=== PATIENT | male | born 1945 | race Caucasian/White ===

== ENCOUNTER 2017-02-27 04:50 | Inpatient (IN) | payer OTHER ==
[2017-02-11 09:14] VITALS: BMI 27.0
--- NOTE | 2017-02-11 09:57 | PAT Medication Instructions ---
Service Date Feb 11, 2017. Current Home Medication List Acetaminophen (Tylenol Arthritis Ext Rel), 650 MG PO Q8H PRN for Pain Ibuprofen (Motrin), 400 MG PO DAILY PRN for Pain Metoprolol Tartrate (Lopressor) (Lopressor), 50 MG PO BID Simvastatin (Zocor), 20 MG PO QAM Triamterene & Hydrochlorothiaz (Hctz/Triamterene), 37.5 MG PO QAM Medication Instructions For Your Scheduled Surgery - Check with surgeon for instructions: Ibuprofen (Motrin), 400 MG PO DAILY PRN for Pain - Hold the following medications the morning of surgery: Triamterene & Hydrochlorothiaz (Hctz/Triamterene), 37.5 MG PO QAM - Take the following medications the morning of surgery with a sip of water: Metoprolol Tartrate (Lopressor) (Lopressor), 50 MG PO BID Simvastatin (Zocor), 20 MG PO QAM Acetaminophen (Tylenol Arthritis Ext Rel), 650 MG PO Q8H PRN for Pain (if needed ) - Take the following medications as scheduled the night before surgery: Metoprolol Tartrate (Lopressor) (Lopressor), 50 MG PO BID Acetaminophen (Tylenol Arthritis Ext Rel), 650 MG PO Q8H PRN for Pain (if needed ) If you have any questions please call us at [phone] or [phone] or [phone]
[2017-02-11 10:27] LABS: BASO % 0.1 %; BASO ABS # 0.01 K/uL (0-0.2); COMPLETE YES; EOS % 2.1 %; HEMATOCRIT 47.1 % (42-52); IG% 0.1 %; LYMPH % 25.3 %; LYMPH ABS # 1.82 K/uL (1.2-3.4); MEAN CELL VOLUME 90.4 fL (80-100); MEAN CORPUSCULAR HEMOGLOBIN 31.5 pg (25-34); MEAN CORPUSCULAR HGB CONC 34.8 g/dl (32-36); MEAN PLATELET VOLUME 8.5 fL (7.4-10.4); MONO % 7.5 %; NEUT % 64.9 %; PLATELET COUNT 194 K/uL (130-400); RED BLOOD COUNT 5.21 M/uL (4.7-6.1)
--- NOTE | 2017-02-11 10:31 | DIAGNOSTIC IMAGING REPORT ---
TWO VIEW CHEST CLINICAL HISTORY: Preoperative examination. FINDINGS: PA and lateral chest radiographs are compared to study dated 03/09/2017. The cardiomediastinal silhouette is unremarkable. The lungs and pleural spaces are clear. There is no pneumothorax. The skeletal structures are osteopenic. The bony thorax appears intact. IMPRESSION: No active disease in the chest. Electronically signed by: Kota Santo M.D. 02/11/2017 10:29 AM Dictated Date/Time: 02/11/2017 10:29 AM
[2017-02-11 10:40] LABS: PARTIAL THROMBOPLASTIN RATIO 1.2; PROTHROMBIN TIME (PATIENT) 10.8 SECONDS (9.0-12.0)
[2017-02-11 12:02] LABS: BLOOD UREA NITROGEN 21 mg/dl (7-18); BUN/CREATININE RATIO 16.1 (10-20); C-REACTIVE PROTEIN < 0.29 mg/dl (0-0.29); CARBON DIOXIDE 34 mmol/L (21-32); CHLORIDE 99 mmol/L (98-107); GLUCOSE 96 mg/dl (70-99); POTASSIUM 4.2 mmol/L (3.5-5.1); SODIUM 138 mmol/L (136-145)
--- NOTE | 2017-02-20 23:08 | HISTORY & PHYSICAL EXAMINATION ---
DATE OF ADMISSION: 02/27/2017 CHIEF COMPLAINT: Left hip pain and decreased ability to ambulate. HISTORY OF PRESENT ILLNESS: A 71-year-old gentleman who presents for surgical treatment of his left hip. He has got fairly complex history related to his hips. He underwent right hip replacement done by Dr. Humphries in the past and then had a work-related injury when he was working at [employer] 2-1/2 years ago. He has been through extensive evaluation including his spine with some residual sciatic nerve problems. He reports weakness in his right leg and had an AFO placed. He has had multiple falls over the past year to year and a half and developed increased pain and discomfort in his left hip. We were evaluating him in the past for his right hip problem and it was noted that he had increased uptake on bone scan of his left hip. MRI showed mostly degenerative changes. There was some concern about a fracture. We treated him conservatively and he has done okay but developed increased pain and discomfort, particularly in the past year in his left hip. X-rays show progressive hip arthritis. He is got to use a cane to get around. He is really limited by his hip pain. He would like to have his hip fixed if possible. It is mostly thigh pain. His walking tolerance is limited. PAST MEDICAL HISTORY: 1. Hypertension. 2. Elevated cholesterol. 3. Right leg numbness and sciatica. 4. Arthritis. 5. 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 PREVIOUS SURGERIES: Include: 1. Tonsillectomy. 2. Hernia repair. 3. Right total hip replacement done by Dr. Humphries. ALLERGIES: None. CURRENT MEDICINES: 1. Metoprolol 50 mg twice a day. 2. Hydrochlorothiazide/triamterene 75 mg a day. 3. Simvastatin 20 mg a day. SOCIAL HISTORY: A 71-year-old male, he is . He does not smoke. FAMILY HISTORY: Noncontributory. REVIEW OF SYSTEMS: Negative for diabetes, neurologic problems, vascular problems, bleeding disorders. He does have history of sciatica affecting his right leg. PHYSICAL EXAMINATION: GENERAL: Healthy, pleasant middle-aged male. He looks to be in pretty good health. HEENT: Benign. NECK: Supple. No lymphadenopathy. LUNGS: Clear to auscultation. HEART: Regular rate and rhythm. ABDOMEN: Soft, nontender, nondistended. EXTREMITIES: Grossly neurovascularly intact except as follows: Examination of the left hip reveals the patient walks with a markedly antalgic gait. He limps on the left side. Leg lengths clinically appear pretty equal. He has stiffness with hip motion with internal rotation and neutral at best and external rotation to 20 degrees. Negative straight leg raise. X-RAYS: X-rays of the left hip were reviewed. They show advanced left hip DJD. He has got complete loss of his superior joint space. Moderate size medial osteophyte. This has progressed significantly over the past year. ASSESSMENT: A 71-year-old male status post right hip replacement with advanced left hip degenerative joint disease. It has gotten significantly worse over the past year. The patient has become debilitated by his pain. He would like to have his left hip replaced. PLAN: We are going to take him to the operating room and do left total hip replacement. The risks and benefits of this procedure were explained to the patient, include but not limited to DVT, PE, , infection, neurological injury, vascular injury, bleeding problem, pain, limited range of motion, stiffness, failure to relieve symptoms, incomplete relief of symptoms, need for further surgery in the future, leg length inequality, nerve palsy, etc. The patient understands and desires to proceed. Informed consent was obtained. He is fully aware this is not going to fix all of his back and hip and leg problems. As far as discharge plans, he is planning to be discharged to home and use [facility]. We did talk to him about taking his metoprolol the morning of surgery.
[~2017-02-27] VITALS: Ht 182.9 cm; Wt 89.9 kg
[2017-02-27] VITALS (21 sets, daily range): BP systolic 93–149; BP diastolic 52–84; PULSE 56–72; TEMP 36.5–36.9; O2SAT 16–99; Ht 182.9 cm; Wt 89.9 kg
[~2017-02-27 04:50] MED LIST: ACET1TAB84 PO; IBUP-1459 PO; METO50TA16 PO; SIMV40TA2 PO; TRIA75TA PO
[2017-02-27] MEDS ORDERED: CEFAZOLIN IV 2,000 MG/60 ML D5W IV ONE (05:51)
[2017-02-27] MEDS ORDERED: LACTATED RINGER'S 1000ML IV SCH (06:00)
[2017-02-27] MEDS ORDERED: METOCLOPRAMIDE HCL 10 MG TAB PO SCH (06:00)
[2017-02-27] MEDS ORDERED: TRANEXAMIC ACID INJ 1,000 MG in SODIUM CHLORIDE 0.9% 100ML 100 ML IV SCH ×2 (06:00→14:30)
[2017-02-27] MEDS ORDERED: SCOPOLAMINE 1.5 MG TDSY TD SCH (06:00)
[2017-02-27] MEDS ORDERED: ACETAMINOPHEN 500 MG TAB PO SCH (06:00)
[2017-02-27] MEDS ORDERED: GABAPENTIN 300 MG CAP PO SCH (06:00)
[2017-02-27] MEDS ORDERED: FAMOTIDINE 20 MG TAB PO SCH (06:00)
[2017-02-27] MEDS ORDERED: LACTATED RINGER'S 500 ML IV SCH (06:00)
[2017-02-27] MEDS ORDERED: BUPIVACAINE 0.5 % 5 MG/1 ML PF 10ML VIAL ONE (06:26)
[2017-02-27] MEDS ORDERED: BACITRACIN 50000 UNIT VIAL ONE (06:27)
[2017-02-27] MEDS ORDERED: BUPIVACAINE/EPINEPHRINE 0.5% MPF 1:200,000 30 ML VIAL ONE (06:27)
[2017-02-27] MEDS ORDERED: MIDAZOLAM HCL 1 MG/ML 2ML VIAL ONE ×2 (06:35)
[2017-02-27] MEDS ORDERED: MORPHINE SULFATE PF 2MG/2ML SYR ONE (06:36)
[2017-02-27] MEDS ORDERED: FENTANYL CITRATE INJ 50 MCG/1 ML 2 ML VIAL ONE (06:36)
[2017-02-27] MEDS ORDERED: LIDOCAINE HCL 2% 2 ML VIAL (20MG/ML) ONE (06:37)
[2017-02-27] MEDS ORDERED: PROPOFOL IV EMULSION 10 MG/ML 20 ML VIAL IV ONE (06:38)
--- NOTE | 2017-02-27 06:52 | History & Physical Bridge Note ---
H&P Re-Evaluation Bridge Note: I have examined the patient, reviewed the History & Physical and in the interval since the performance of the History & Physical I have noted the following changes of clinical significance: No changes noted
[2017-02-27] MEDS ORDERED: EpHEDrine SULFATE INJ 50 MG/ML AMP ONE (07:11)
[2017-02-27] MEDS ORDERED: SODIUM CHLORIDE 0.9% INJ 10 ML VIAL ONE (07:11)
[2017-02-27] MEDS ORDERED: ONDANSETRON INJ 2 MG/ML 2 ML VIAL ONE (07:11)
[2017-02-27] MEDS ORDERED: LACTATED RINGER'S 1000ML 500 ML IV PRN (07:22)
[2017-02-27] MEDS ORDERED: NALOXONE HCL INJ 0.08 MG in SYRINGE 1.8 ML IV PRN (07:22)
[2017-02-27] MEDS ORDERED: NALOXONE HCL INJ 1 MG in SODIUM CHLORIDE 0.9% 1000ML 1,000 ML IV PRN ×4 (07:22)
[2017-02-27] MEDS ORDERED: SODIUM CHLORIDE 0.9% 1000ML 1,000 ML IV PRN (07:22)
[2017-02-27] MEDS ORDERED: MEPERIDINE HCL 25 MG/ML CARP IV PRN ×2 (07:30)
[2017-02-27] MEDS ORDERED: ONDANSETRON INJ 2 MG/ML 2 ML VIAL IV PRN ×3 (07:30→08:30)
[2017-02-27] MEDS ORDERED: KETOROLAC TROMETHAMINE 30 MG/ML VIAL IV. PRN (07:30)
[2017-02-27] MEDS ORDERED: NO NARCOTICS OR SEDATIVES SCH (07:30)
[2017-02-27] MEDS ORDERED: EpHEDrine SULFATE INJ 50 MG/ML AMP IV PRN ×2 (07:30)
[2017-02-27] MEDS ORDERED: PHENYLEPHRINE 100MCG/ML 5ML SYR IV PRN (07:30)
[2017-02-27] MEDS ORDERED: PROMETHAZINE HCL INJ 6.25 MG in SODIUM CHLORIDE 0.9% 50ML 50 ML IV PRN (07:30)
[2017-02-27] MEDS ORDERED: DiphenhydrAMINE HCL 50 MG/ML VIAL IV PRN (07:30)
[2017-02-27] MEDS ORDERED: KETOROLAC TROMETHAMINE 15 MG/ML VIAL IV. PRN (07:30)
[2017-02-27] MEDS ORDERED: ATROPINE SULFATE 0.1 MG/ML 5ML SYR IV PRN (07:30)
[2017-02-27] MEDS ORDERED: NALOXONE HCL 0.4 MG/1 ML VIAL/CARP IV PRN (07:30)
[2017-02-27] MEDS ORDERED: MoRPHine SULFATE PF 1 MG/ML 10 ML AMP/VIAL EPI PRN (07:30)
[2017-02-27] MEDS ORDERED: PHENYLEPHRINE HCL INJ 10 MG/ML VIAL ONE (07:44)
[2017-02-27] MEDS ORDERED: TAMSULOSIN HCL 0.4 MG CAP PO PRN (08:30)
[2017-02-27] MEDS ORDERED: ZOLPIDEM TARTRATE 5 MG TAB PO PRN (08:30)
[2017-02-27] MEDS ORDERED: BISACODYL 10 MG SUPP PR PRN (08:30)
[2017-02-27] MEDS ORDERED: ALUMINUM/MAGNESIUM/SIMETH (MAALOX MAX) 30 ML UDC PO PRN (08:30)
[2017-02-27] MEDS ORDERED: SILVER SULFADIAZINE 1% CR 50 GM JAR EXT PRN (08:30)
[2017-02-27] MEDS ORDERED: MAGNESIUM HYDROXIDE SUSP 30 ML UDC PO PRN (08:30)
--- NOTE | 2017-02-27 08:30 | [facility] Post Operative Brief Note ---
Immediate Operative Summary Operative Date Feb 27, 2017. Pre-Operative Diagnosis Left Hip Degenerative Joint Disease Post-Operative Diagnosis Same as preop Procedure(s) Performed Left Total Hip Arthroplasty Uncemented Surgeon Dr. Marcos Hadoop Admin Surgeon(s) Deondre Higginbotham PA-C Estimated Blood Loss 300 ml Findings Left Hip DJD Fluids (cc crystalloids) 800 cc Specimens A. Left Femoral Head Drains None Anesthesia Spinal Complication(s) None Disposition Recovery Room / PACU
[2017-02-27] MEDS ORDERED: SIMVASTATIN 20 MG TAB PO SCH (09:00)
--- NOTE | 2017-02-27 09:04 | DIAGNOSTIC IMAGING REPORT ---
L PELVIS/UNILATERAL HIP 1 VIEW HISTORY: 71 years-old Male IN PACU - A/P PELVIS and LATERAL HIP INCLUDING ALL OF IMPLANT status post left hip arthroplasty. Degenerative joint disease of the left hip COMPARISON: Pelvis radiograph 04/08/2007 TECHNIQUE: AP view the pelvis with crosstable lateral view of the left hip FINDINGS: The bones are mildly demineralized. Right total hip arthroplasty noted in satisfactory alignment. There has been interval left total hip arthroplasty which also appears to be in satisfactory alignment. No periprosthetic fracture or retained foreign body identified. Expected postoperative soft tissue swelling and deep tissue air is noted about the left hip with lateral skin cassie. Multiple surgical clips project over the pelvis. IMPRESSION: Status post placement of a left total hip arthroplasty without complication identified. The above report was generated using voice recognition software. It may contain grammatical, syntax or spelling errors. Electronically signed by: Edvin Rivera M.D. 02/27/2017 9:02 AM Dictated Date/Time: 02/27/2017 9:00 AM
--- NOTE | 2017-02-27 09:05 | Anesthesiology Progress Note ---
Anesthesia Post Op Note Date & Time Feb 27, 2017 at 09:05 Vital Signs Pain Intensity: 0 Vital Signs Past 12 Hours Date Time Temp Pulse Resp B/P (MAP) Pulse Ox O2 Delivery O2 Flow Rate FiO2 02/27/17 08:55 86 16 119/70 97 Nasal Cannula 2 02/27/17 08:45 72 16 109/63 98 Oxymask 10 02/27/17 08:35 72 16 122/72 98 Oxymask 10 02/27/17 08:29 36.6 79 16 128/66 97 Oxymask 10 02/27/17 05:37 36.5 56 18 149/84 96 Room Air Notes Mental Status: alert / awake / arousable, participated in evaluation Pt Amnestic to Procedure: Yes Nausea / Vomiting: adequately controlled Pain: adequately controlled Airway Patency, RR, SpO2: stable & adequate BP & HR: stable & adequate Hydration State: stable & adequate Neuraxial Anesthesia: was administered, sensory block is resolving Anesthetic Complications: no major complications apparent
--- NOTE | 2017-02-27 09:13 | OPERATIVE REPORT ---
DATE OF OPERATION: 02/27/2017 SURGEON: Chino Marcos MD. GAUGE INSPECTOR: LIBORIO Corcoran. PREOPERATIVE DIAGNOSIS: Left hip degenerative joint disease. POSTOPERATIVE DIAGNOSIS: Same. PROCEDURE PERFORMED: Left uncemented total hip arthroplasty. COMPLICATION: None. ESTIMATED BLOOD LOSS: 300 mL FLUID REPLACEMENT: 800 mL crystalloid fluid replacement. ANESTHESIA: Spinal. DRAINS: None. SPECIMENS: Left femoral head sent for pathology. OPERATIVE INDICATIONS: The patient is a 71-year-old gentleman who has had a fairly long history of some hip problems in the past. He had his right hip replaced back in 2006, he has done well from that. He did have some trauma a couple years ago, which seemed to exacerbate everything. He did have a bit of sciatic nerve palsy on his right side. Over the past year, he has developed increased pain and discomfort in his left hip to the point where he has had to use a cane to get around. X-rays showed progressive left hip arthritis. He elected to proceed with operative treatment. OPERATIVE FINDINGS: Operative findings revealed advanced left hip DJD. He had grade 4 [id number] disease of the femoral head and acetabulum. He had pretty significant anterior osteophytes of the acetabulum. He had a pretty large hip joint effusion as well. OPERATIVE IMPLANTS: Operative implants consisted of: 1. Biomet G7 size 54 mm acetabular shell. 2. An apex hole eliminator. 3. 6.5 cancellous acetabular screws, 1 at 35 mm length and 1 at 25 mm in length. 4. Highly cross-linked polyethylene liner with a 54 mm outer diameter and 36 mm inner diameter. 5. DePuy size 13.5 small stature femoral stem. 6. A +8.5/36 mm metal articular ball. OPERATIVE PROCEDURE: The patient was taken to the operating room, identified and placed on the operating table in supine position. All contact areas were appropriately padded. IV antibiotics provided by anesthesia team. A spinal anesthetic had been implemented in the holding area. Stuart catheter was placed in sterile fashion. The patient was then placed in the right lateral decubitus position. Stulberg hip positioner was used for positioning. The left hip and leg were then prepped and draped in usual sterile fashion. A posterolateral approach to the left hip was then performed through a curvilinear incision centered over the greater trochanter. Blunt and sharp dissection was carried out through the subcutaneous tissue down to the level of the IT band and gluteal fascia. The IT band and gluteal fascia were incised longitudinally in line with skin incision. The underlying greater trochanteric bursa was excised. The piriformis and external rotators were tagged and taken off the posterior aspect of the hip joint capsule. Great care was taken throughout the procedure to protect the sciatic nerve at all times. Posterior capsulotomy was then performed, leaving a large flap for later repair. Hip was internally rotated and dislocated. Femoral neck osteotomy cut was made with the final cut 15 mm above the lesser trochanter. Femoral head was removed and sent for pathology. The femur was retracted anteriorly. Attention was then drawn to the acetabulum. The acetabular labrum was excised. The pulvinar fat was excised. Some anterior osteophytes were removed. Sequential reaming of the acetabulum was then performed, beginning with a size 45 and progressing up to 53. A 54 mm Biomet G7 acetabular shell was then placed in about 40 degrees of lateral opening and 20 degrees of anteversion. It was fixed with two 6.5 cancellous acetabular screws. A trial liner was placed. The anterior osteophyte was removed. Attention was then drawn to the femur. The proximal femur was entered with a cookie cutter, followed by a canal finder and lateralizing reamer. Sequential reaming of the femur was then performed, beginning with a size 9 reamer and progressing up to a 13. We got pretty good chatter at 13. I then broached beginning with a size 10.5 and progressing up to 13.5 small broach. His cancellous bone was extremely hard, and therefore, we did not attempt to place a larger implant. I then used the calcar reamer to smoothen off the calcar. We trialed the hip. The +5/36 mm articular ball provided stability but soft tissue tension was still pretty laxed. With the +8.5 ball, I tightened up the soft tissues. The hip was fully stable in full extension and external rotation and flexion to 90 degrees, internal rotation to 50+ degrees. Leg lengths seemed appropriate in length and equal. Attention was then turned toward placing these components. All trial components were removed. An apex hole eliminator was placed. Highly cross-linked polyethylene liner was placed. A 13.5 small stature AML femoral stem was placed. We got excellent scratch fit. A +8.5/36 mm metal articular ball was placed. Hip was located and once again found to be stable. Attention was then drawn toward closing. The wound was irrigated with copious amounts of pulsatile lavage solution. I did inject locally with 60 mL of 0.5% Marcaine with epinephrine. The posterior capsule and external rotators were repaired through drill holes in the posterior trochanter with #2 Ti-Cron suture. The IT band and gluteal fascia were then closed with #1 PDS suture in a running fashion. The subcutaneous tissues were closed with 2 layers with the deep layer with #1 Vicryl suture and subcutaneous tissues with 2-0 Dexon suture in a buried interrupted fashion. Skin was closed with skin cassie. Leg was then cleaned and dried, and a sterile dressing of Xeroform, 4 x 4's, sterile ABD pad and foam tape was applied. The patient was then transferred to the recovery room in stable condition. The patient tolerated the procedure well with no complications. All needle and sponge counts were correct at the end of the operation. I attest to the content of the Intraoperative Record and any orders documented therein. Any exception s are noted below.
[2017-02-27] MEDS: MULTIVITAMIN TAB PO SCH (13:01)
[2017-02-27] MEDS: PANTOprazole SOD 40 MG TAB PO SCH (13:01)
[2017-02-27] MEDS: TRIAMTERENE/HCTZ 37.5/25MG TAB PO SCH (13:01)
[2017-02-27] MEDS: KETOROLAC TROMETHAMINE 15 MG/ML VIAL IV. SCH ×3 (13:02→23:23)
[2017-02-27] MEDS: FERROUS GLUCONATE 324 MG TAB PO SCH ×2 (13:02→18:59)
[2017-02-27] MEDS: D5W AND 1/2NSS + 20MEQ KCL 1,000 ML IV SCH ×3 (13:05→23:23)
[2017-02-27] MEDS: ACETAMINOPHEN 500 MG TAB PO SCH ×2 (14:39→20:54)
--- NOTE | 2017-02-27 15:33 | PROGRESS NOTE ---
DATE: 02/27/2017 DATE: 02/27/2017 SUBJECTIVE: A 71-year-old gentleman postop from a left hip replacement. He is doing well. Not having any pain yet. No chest pain or shortness of breath. Not feeling dizzy or lightheaded. OBJECTIVE: VITAL SIGNS: Temperature is 36.9. Vital signs stable. PHYSICAL EXAMINATION: GENERAL: Reveals a pleasant elderly male. He is sitting up in bed and talking to his . He looks comfortable. LUNGS: Clear to auscultation. HEART: Regular rate and rhythm. ABDOMEN: Soft, nontender, nondistended. EXTREMITY EXAMINATION: Grossly neurovascularly intact except as follows: Examination of left hip and leg reveals the dressing to be clean, dry and intact. Thigh is soft and supple. Leg lengths were equal. Hip is located. He is neurologically intact. X-RAYS: X-rays of the left hip from recovery room are reviewed. It shows a left uncemented total hip arthroplasty. Components looked to be in good position. No signs of problems. ASSESSMENT: A 71-year-old gentleman postop from left total hip replacement, doing well. His pain is controlled. Hip is located. He is neurologically intact. PLAN: 1. DVT prophylaxis including thigh TEDs, SCDs, and aspirin twice a day. 2. PT and OT. Weight bear as tolerated. Left total hip protocol. 3. Pain control. Doing well with current pain regimen. 4. IV antibiotics x24 hours. 5. Disposition. Plan to discharge to home with some home health once adequately recovered.
[2017-02-27] MEDS: CEFAZOLIN IV 2,000 MG in DEXTROSE 5% 50ML 50 ML IV SCH ×2 (15:34→22:32)
[2017-02-27] MEDS: CHECK SCOPOLAMINE PATCH PLACEMENT SCH ×2 (15:38→23:22)
[2017-02-27] MEDS ORDERED: INFLUENZA ADMINISTRATION CHARGE ONE (16:00)
[2017-02-27] MEDS ORDERED: INFLUENZA VACCINE HIGH DOSE 65+ 0.5 ML SYR IM. ONE (16:00)
[2017-02-27] MEDS: METOPROLOL TARTRATE 50 MG TAB PO SCH (20:52)
[2017-02-27] MEDS: SENNA 8.6 MG TAB PO SCH (20:54)
[2017-02-27] MEDS: ASPIRIN 325 MG ECTAB PO SCH (20:54)
[2017-02-27] MEDS: DOCUSATE SODIUM 100 MG CAP PO SCH (20:54)
[2017-02-27] MEDS: SIMVASTATIN 20 MG TAB PO SCH (20:54)
[2017-02-27] MEDS ORDERED: DC INTRASPINAL MORPHINE ONE (23:45)
[2017-02-27] MEDS ORDERED: METOCLOPRAMIDE HCL INJ 5 MG/ML 2 ML VIAL IV PRN (23:46)
[2017-02-27] MEDS ORDERED: HYDROmorphone INJ 0.5 MG/0.5 ML SYR IV PRN (23:46)
[2017-02-28 02:54] VITALS: BP 95/52; PULSE 73; TEMP 37.1; O2SAT 94
[2017-02-28] MEDS: ACETAMINOPHEN 500 MG TAB PO SCH ×3 (05:41→21:19)
[2017-02-28] MEDS: D5W AND 1/2NSS + 20MEQ KCL 1,000 ML IV SCH (05:41)
[2017-02-28] MEDS: KETOROLAC TROMETHAMINE 15 MG/ML VIAL IV. SCH ×4 (05:41→23:56)
[2017-02-28 06:22] LABS: BASO % 0.1 %; BASO ABS # 0.01 K/uL (0-0.2); COMPLETE YES; EOS % 1.4 %; IG% 0.1 %; LYMPH ABS # 0.84 K/uL (1.2-3.4); MEAN CELL VOLUME 89.1 fL (80-100); MEAN CORPUSCULAR HEMOGLOBIN 30.7 pg (25-34); MEAN CORPUSCULAR HGB CONC 34.4 g/dl (32-36); MEAN PLATELET VOLUME 8.3 fL (7.4-10.4); MONO % 9.5 %; NEUT % 77.9 %; PLATELET COUNT 116 K/uL (130-400); RED BLOOD COUNT 4.04 M/uL (4.7-6.1); WHITE BLOOD COUNT 7.65 K/uL (4.8-10.8)
[2017-02-28 06:53] LABS: BUN/CREATININE RATIO 12.6 (10-20); CALCIUM 8.1 mg/dl (8.5-10.1); CREATININE 1.3 mg/dl (0.60-1.40); POTASSIUM 3.3 mmol/L (3.5-5.1)
[2017-02-28 07:10] VITALS: BP 96/54; PULSE 65; TEMP 36.9; O2SAT 96
[2017-02-28] MEDS: CHECK SCOPOLAMINE PATCH PLACEMENT SCH ×3 (08:00→23:57)
[2017-02-28] MEDS ORDERED: POTASSIUM CHLORIDE 10 MEQ TABCR PO ONE ×2 (08:15→18:00)
--- NOTE | 2017-02-28 08:29 | PROGRESS NOTE ---
DATE: 02/28/2017 SUBJECTIVE: A 71-year-old gentleman postop day 1 from a left hip replacement. He is doing pretty well. A bit more painful today than yesterday. No chest pain or shortness of breath. Not feeling dizzy or lightheaded. OBJECTIVE: VITAL SIGNS: Temperature 36.9. Vital signs stable. GENERAL: A healthy, pleasant elderly male. He is sitting up in bed and looks reasonably comfortable. LUNGS: Clear to auscultation. HEART: Regular rate and rhythm. ABDOMEN: Soft, nontender, nondistended. EXTREMITIES: Grossly neurovascularly intact except as follows. Examination of left hip and leg reveals the dressing to be clean, dry and intact. Hip is located. Thigh is soft and supple. He is neurologically intact. LABORATORY DATA: Hemoglobin 12.4, hematocrit 36.0. Electrolytes are stable. Potassium slightly low at 3.3. ASSESSMENT: A 71-year-old gentleman postop day 1 from a left total hip replacement, doing well. Pain is reasonably well controlled. His hip is located. He is neurologically intact. PLAN: 1. DVT prophylaxis including thigh high TEDs, SCDs, and aspirin twice a day. 2. PT, OT. Weight bear as tolerated. Left total hip protocol. 3. Pain control, doing pretty well with current pain regimen. 4. Hypokalemia. We will supplement his potassium and recheck tomorrow. 5. Disposition: He is planning to be discharged home with some home health once adequately recovered.
[2017-02-28] MEDS: METOPROLOL TARTRATE 50 MG TAB PO SCH ×2 (09:00→21:24)
[2017-02-28] MEDS: FERROUS GLUCONATE 324 MG TAB PO SCH ×3 (09:19→18:25)
[2017-02-28] MEDS: PANTOprazole SOD 40 MG TAB PO SCH (09:20)
[2017-02-28] MEDS: ASPIRIN 325 MG ECTAB PO SCH ×2 (09:20→21:19)
[2017-02-28] MEDS: MULTIVITAMIN TAB PO SCH (09:20)
[2017-02-28] MEDS: DOCUSATE SODIUM 100 MG CAP PO SCH ×2 (09:20→21:19)
[2017-02-28] MEDS: OXYCODONE HCL IR 5 MG TAB (IMMEDIATE RELEASE) PO PRN ×3 (09:24→23:57)
[2017-02-28] MEDS: TRIAMTERENE/HCTZ 37.5/25MG TAB PO SCH (11:27)
[2017-02-28] MEDS: TAPENTADOL ER 50 MG TABCR PO SCH ×2 (11:27→21:19)
[2017-02-28 11:48] VITALS: BP 144/68; PULSE 70; O2SAT 94
[2017-02-28] MEDS ORDERED: RXC5 PO (15:07)
[2017-02-28] MEDS ORDERED: ACET-24 PO (15:07)
[2017-02-28] MEDS ORDERED: ASPEC325 PO (15:07)
--- NOTE | 2017-02-28 15:11 | Discharge Instructions ---
Discharge Instructions Date of Service Feb 28, 2017. Admission Reason for Admission: Left Hip Degenerative Joint Disease Discharge Discharge Diagnosis / Problem: Left Hip Replacement Discharge Goals Goal(s): Decrease discomfort, Improve function, Increase independence, Improve disease control, Therapeutic intervention Activity Recommendations Activity Limitations: per Instructions/Follow-up section (Total Hip Precautions ) Weightbearing Status: Left weightbearing . Instructions / Follow-Up Instructions / Follow-Up ACTIVITY RECOMMENDATIONS: Physical Therapy: * Aggressive physical therapy is not usually needed. You will learn to take care of yourself safely and walk. * Follow the "Hip Precautions Instructions." * In some cases, the social media director at the hospital will arrange to have a therapist come to your house for the first couple of weeks to help you learn these skills. * You need to practice on your own or with the help of a family member as needed. * When you learn these skills, most of the therapy can be done on your own. Home Exercise: * You were shown a series of exercises in the hospital. Do these exercises three to four times each day including the exercises you were shown in physical therapy. Walking: * Get up and walk several times each day. For the first four weeks, try not to stand or walk for more than one hour at a time. If you do stand or walk for more than one hour, you will not hurt anything, but your leg will likely swell. * As you feel comfortable, you may change from the walker or crutches to a cane and then to independent walking. MEDICATIONS: New Medicine: * You will likely be taking one or more of these medicines: 1. Oxycodone - Take, as directed, when you need it, every four to six hours to control your pain. 2. Aspirin - Thins your blood to lessen the chance of forming a blood clot. * The most common side effects of pain medicine and iron are nausea and constipation. If nausea or constipation is too much of a problem or if you have any questions about your new medicines or doses, call [facility] at . We will try to help you manage these issues. VERY IMPORTANT TO READ AND REVIEW" Pain: * The immediate post-operative period after hip replacement surgery is often quite painful. * You are given a prescription for pain medicine. You should take it, as directed, when you need it, especially before physical therapy and before going to bed. Pain that interferes with sleep is very common and can last several months. * You will likely need pain medicine for the first two to four weeks. It will not stop all of the pain. The pain will lessen and as you feel better, you may change to milder pain medicine such as Tylenol. * The most common side effects of pain medicine are nausea and constipation, so don't take more than you need. SPECIAL CARE INSTRUCTIONS: TEDs/Elastic Stockings: * The white elastic stockings help limit swelling and prevent blood clots from forming in your legs. The more you wear them, the more they work. * Wear them for six weeks. Prevention of Infection: * Take antibiotics one hour before any dental cleaning, dental work, urological procedure, gastrointestinal procedure or any invasive surgery in order to prevent your new joint from getting infected. * You may get the antibiotics from the doctor performing the procedure or you may call our office at before and we will call in a prescription to the pharmacy of your choice. Things to Watch For: * Drainage from the incision site that occurs more than one week after your surgery. * Severely increased leg pain or swelling. * Increased redness at the incision site. * Fever above 102 degrees Fahrenheit. * Unusual chest pain or shortness of breath. * Unusual pain or burning with urination. Call [facility] at with any of the above problems or if you have any questions about your medicines or recovery. FOLLOW UP VISIT: Make an appointment to see your doctor for approximately two weeks after surgery for a progress check and staple removal by calling the office at . Current Hospital Diet Patient's current hospital diet: Regular Diet Discharge Diet Recommended Diet: Regular Diet Procedures Procedures Performed: Left Total Hip Arthroplasty Uncemented Pending Studies Studies pending at discharge: no Medical Emergencies . Who to Call and When: Medical Emergencies: If at any time you feel your situation is an emergency, please call [phone] immediately. . Non-Emergent Contact Non-Emergency issues call your: Surgeon . "Provider Documentation" section prepared by Chino Marcos. . VTE Core Measure Inpt VTE Proph given/why not?: Other Anticoagulation, T.E.D. Stockings, SCD's
[2017-02-28 15:28] VITALS: BP 100/56; PULSE 82; TEMP 37; O2SAT 91
[2017-02-28] MEDS: SIMVASTATIN 20 MG TAB PO SCH (21:19)
[2017-02-28] MEDS: SENNA 8.6 MG TAB PO SCH (21:19)
[2017-02-28 21:23] VITALS: BP 102/56; PULSE 83
[2017-02-28 22:46] VITALS: BP 110/56; PULSE 86; TEMP 37; O2SAT 93
[2017-03-01] MEDS: KETOROLAC TROMETHAMINE 15 MG/ML VIAL IV. SCH ×2 (05:13→05:16)
[2017-03-01] MEDS: ACETAMINOPHEN 500 MG TAB PO SCH (05:13)
[2017-03-01] MEDS: OXYCODONE HCL IR 5 MG TAB (IMMEDIATE RELEASE) PO PRN (05:20)
[2017-03-01 06:57] VITALS: BP 110/67; PULSE 68; TEMP 36.8; O2SAT 94
[2017-03-01] MEDS: CHECK SCOPOLAMINE PATCH PLACEMENT SCH (08:00)
--- NOTE | 2017-03-01 08:36 | PROGRESS NOTE ---
DATE: 03/01/2017 SUBJECTIVE: A 71-year-old gentleman postop day #2 from a left hip replacement. He is doing well. By a report, he was a little bit confused last night, but seems to work and awake appropriately from this morning. Pain is very well controlled. He states that he is anxious to get out of the hospital and ready to go home. OBJECTIVE: VITAL SIGNS: Temperature 36.8. Vital signs stable. GENERAL: Physical examination reveals a pleasant, middle-aged male. He is sitting up in his bedside chair. He is awake, alert, appropriate and oriented. EXTREMITIES: Examination of the left hip reveals the dressing to be clean, dry and intact. The hip is located. He is neurologically intact. Potassium is improved at 3.9. ASSESSMENT: A 71-year-old gentleman postop day #2 from a left hip replacement, doing well. Pain is controlled. He is ready to go home. PLAN: 1. DVT prophylaxis including thigh-high TEDs, SCDs, and aspirin twice a day. 2. PT and OT. Weightbear as tolerated. Left total hip protocol. 3. Pain control, doing well with current pain regimen. 4. Hypokalemia. Resolved after supplementation. 5. Disposition: Plan to discharge to home with some home health after therapy today.
[2017-03-01] MEDS: ASPIRIN 325 MG ECTAB PO SCH (09:28)
[2017-03-01] MEDS: FERROUS GLUCONATE 324 MG TAB PO SCH (09:28)
[2017-03-01] MEDS: PANTOprazole SOD 40 MG TAB PO SCH (09:28)
[2017-03-01] MEDS: DOCUSATE SODIUM 100 MG CAP PO SCH (09:28)
[2017-03-01] MEDS: MULTIVITAMIN TAB PO SCH (09:28)
[2017-03-01 09:30] VITALS: BP 111/71; PULSE 64
[2017-03-01] MEDS: METOPROLOL TARTRATE 50 MG TAB PO SCH (09:31)
[2017-03-01] MEDS: TAPENTADOL ER 50 MG TABCR PO SCH (09:34)
[2017-03-01] MEDS: TRIAMTERENE/HCTZ 37.5/25MG TAB PO SCH (09:35)
[2017-03-01 10:26] VITALS: BP 111/71; PULSE 64; TEMP 36.8; O2SAT 94
== END 2017-03-01 11:06 | disposition home health service (06) | DRG 470 ==
LOC: C.ACU 04:50 → C.3E 06:35 → ENRESERV 08:52
PROVIDERS: ADMIT Orthopaedic Surgery Sports Medicine; ATTEND Orthopaedic Surgery Sports Medicine
PROC: 0SRB02A Replacement of Left Hip Joint with Metal on Polyethylene Synthetic Substitute, Uncemented, Open Approach (ICD-10-PCS; principal; 2017-02-27 07:00)
DX: M16.12 Unilateral primary osteoarthritis, left hip (principal); Z96.641 Presence of right artificial hip joint; I10 Essential (primary) hypertension; E78.00 Pure hypercholesterolemia, unspecified; Z79.899 Other long term (current) drug therapy